=== PATIENT | female | born 1975 | race Caucasian/White ===

== ENCOUNTER 2016-03-04 19:24 | Emergency (ER) | payer OTHER ==
[~2016-03-04] VITALS: Ht 172.7 cm; Wt 99.8 kg
[~2016-03-04 19:24] MED LIST: ACETAMINOPHEN-H1 TA2 PO; ANTACID PO; ATIVAN0.5 MG PO; AUGMENTIN 875 M1 TAB PO; BIRTH CONTROL1 EAC1 PO; BUPROPION75 MG PO; CALCITRATE200 MG PO; CELEXA20 MG PO; CIPROFLOXACIN500 MG PO; CLARITIN10 MG PO; CLINDAMYCIN300 MG PO; COMPAZINE10 MG PO; DARVOCET N 1001 TAB PO; EPIPEN 2-PAK1 MG/ML MR; FIORICET 325 MG1 TAB PO; HYDROCHLOROTH12.5 M3 PO; KEFLEX250 MG/5 M PO; KROGER NIC21 MG/24 H T; LEVOTHYROXINE0.05 MG PO; LISINOPRIL-HYDR1 TA1 PO; LISINOPRIL40 MG PO; MOTRIN800 MG PO; NORVASC5 MG PO; PENICILLIN V500 MG PO; PENICILLIN VK500 MG PO; PERCOCET 325 MG1 TA2 PO; PREDNISONE50 MG PO; Rocaltrol0.25 MCG PO; SEPTRA DS 800 M1 TAB PO; SYNTHROID,LEVO75 MCG PO; SYNTHROID0.025 MG PO; Synthroid,Levo75 MCG PO; TOPIRAMATE25 M3 PO; TRAMADOL HCL50 MG PO; ULTRAM50 MG PO; VICODIN 5-3001 EACH PO; VICODIN 5/500 505 MG PO; VICODIN ES 7501 TAB PO; VICODIN PO; VOLTAREN50 M1 PO; ZANTAC 150150 MG PO; ZOFRAN ODT4 MG SL; ZOFRAN4 MG PO
[2016-03-04 19:53] VITALS: BP 145/92
[2016-03-04] MEDS ORDERED: HYDROCODONE BIT1 T11 PO (19:54)
[2016-03-04 20:31] LABS: BILIRUBIN NEGATIVE (NEGATIVE); BLOOD NEGATIVE (NEGATIVE); CLARITY CLEAR (CLEAR); COLOR YELLOW (YELLOW); GLUCOSE NEGATIVE (NEGATIVE); KETONE NEGATIVE (NEGATIVE); LEUKO ESTERASE NEGATIVE (NEGATIVE); NITRITE NEGATIVE (NEGATIVE); PH 5.5 (5.0-9.0); PROTEIN NEGATIVE (NEGATIVE); SPECIFIC GRAVITY <= 1.005 (1.005-1.030); UROBILINOGEN 0.2 E.U./dl (0.2-1.0)
[2016-03-04 20:49] LABS: URINE REFLEX COMMENT NO (NO); WBC 0-2 wbc/hpf (0-5)
[2016-03-04] MEDS ORDERED: ANAPROX DS550 MG PO (22:16)
== END 2016-03-04 22:14 | disposition home or self-care (01) ==
LOC: ED 19:24
PROVIDERS: Emergency Medicine Emergency Medical Services
DX: S16.1XXA Strain of muscle, fascia and tendon at neck level, initial encounter (principal); F41.9 Anxiety disorder, unspecified; F32.9 Major depressive disorder, single episode, unspecified; I10 Essential (primary) hypertension; F17.200 Nicotine dependence, unspecified, uncomplicated; Z90.49 Acquired absence of other specified parts of digestive tract; Z88.8 Allergy status to other drugs, medicaments and biological substances; Z90.89 Acquired absence of other organs; X58.XXXA Exposure to other specified factors, initial encounter; Y93.89 Activity, other specified; Y92.9 Unspecified place or not applicable; Y99.9 Unspecified external cause status

== ENCOUNTER 2016-05-02 18:23 | Emergency (ER) | payer OTHER ==
[~2016-05-02] VITALS: Ht 172.7 cm; Wt 122.5 kg
[~2016-05-02 18:23] MED LIST changes: +ANAPROX DS550 MG PO; +HYDROCODONE BIT1 T11 PO
[2016-05-02] MEDS ORDERED: VITAMIN D50000 I3 PO (18:40)
[2016-05-02] MEDS ORDERED: IBU800 M1 PO (18:41)
[2016-05-02] MEDS ORDERED: RANITIDINE HYD300 MG PO (18:41)
[2016-05-02] MEDS ORDERED: OMEPRAZOLE40 MG PO (18:41)
[2016-05-02 19:13] LABS: BASO # 0.1 10*3/uL (0.0-0.1); BASO % 0.6 % (0.0-1.0); EOS # 0.2 10*3/uL (0.0-0.4); HEMATOCRIT 44.9 % (37.0-47.0); HEMOGLOBIN 15.6 g/dl (12.0-16.0); LYMPH # 3.1 10*3/uL (1.3-4.4); LYMPH % 38.3 % (27.0-41.0); MEAN CORPUSCULAR HGB CONC 34.7 g/dl (33.0-37.0); MEAN PLATELET VOLUME 9.3 fl (9.6-12.3); MONO # 0.4 10*3/uL (0.1-1.0); MONO % 5.3 % (3.0-9.0); NEUT # 4.2 10*3/uL (2.3-7.9); NEUT % 53.3 % (47.0-73.0); PLATELET COUNT AUTOMATED 296 10*3/uL (130-400); RED BLOOD COUNT 4.88 10*6/uL (4.10-5.10); RED CELL DISTRI WIDTH 13.2 % (0-14.5)
[2016-05-02 19:28] LABS: ALBUMIN 4.1 gm/dl (3.1-4.5); ALKALINE PHOSPHATASE 58 U/L (45-117); BILIRUBIN, TOTAL 0.4 mg/dl (0.2-1.0); BUN 16 mg/dl (7-24); CARBON DIOXIDE 29 mmol/L (21-32); CHLORIDE 107 mmol/L (98-107); EST GLOM FILT AFRICAN AMERICAN > 60 ml/min; GLUCOSE 89 mg/dL (65-99); POTASSIUM 4.2 mmol/L (3.5-5.1); SGOT/AST 18 IU/L (3-35); SGPT/ALT 27 U/L (12-78); SODIUM 144 mmol/L (136-145); TOTAL PROTEIN 7.6 gm/dL (6.4-8.2)
[2016-05-02 19:36] LABS: THYROID STIM HORMONE (HS) 0.887 uIU/ml (0.358-4.75)
[2016-05-02 20:26] VITALS: BP 136/92
[2016-05-02] MEDS ORDERED: ATIVAN1 MG PO (21:41)
== END 2016-05-02 21:42 | disposition home or self-care (01) ==
LOC: ED 18:23
PROVIDERS: Physician Assistant
DX: F41.9 Anxiety disorder, unspecified (principal); F17.200 Nicotine dependence, unspecified, uncomplicated; Z88.8 Allergy status to other drugs, medicaments and biological substances; Z90.49 Acquired absence of other specified parts of digestive tract; Z79.899 Other long term (current) drug therapy

== ENCOUNTER → 2016-06-03 | Outpatient (CLI) | payer OTHER ==
[~2016-06-03] MED LIST changes: +ATIVAN1 MG PO; +IBU800 M1 PO; +OMEPRAZOLE40 MG PO; +RANITIDINE HYD300 MG PO; +VITAMIN D50000 I3 PO
[2016-06-03 12:25] LABS: FREE T4 1.13 ng/dl (0.76-1.46)
[2016-06-03 12:30] LABS: THYROID STIM HORMONE (HS) 0.582 uIU/ml (0.358-4.75)
== END | disposition home or self-care (01) ==
LOC: LAB 11:25
PROVIDERS: Internal Medicine
DX: E83.51 Hypocalcemia (principal); E89.0 Postprocedural hypothyroidism; E61.8 Deficiency of other specified nutrient elements; E55.9 Vitamin D deficiency, unspecified

== ENCOUNTER 2016-07-07 18:55 | Emergency (ER) | payer OTHER ==
[~2016-07-07] VITALS: Ht 172.7 cm; Wt 113.4 kg
[2016-07-07 19:00] VITALS: BP 152/90
[2016-07-07] MEDS ORDERED: CELEXA20 MG PO (19:02)
[2016-07-07] MEDS ORDERED: HYDROCODONE BIT1 T11 PO (20:00)
[2016-07-07] MEDS ORDERED: BACTRIM DS 8001 TA1 PO (20:00)
[2016-07-07] MEDS ORDERED: CEPHALEXIN500 M1 PO (20:00)
== END 2016-07-07 20:48 | disposition home or self-care (01) ==
LOC: ED 18:55
DX: L02.416 Cutaneous abscess of left lower limb (principal); F17.200 Nicotine dependence, unspecified, uncomplicated; Z88.8 Allergy status to other drugs, medicaments and biological substances; Z90.49 Acquired absence of other specified parts of digestive tract

== ENCOUNTER → 2016-08-01 | Outpatient (CLI) | payer OTHER ==
[~2016-08-01] MED LIST changes: +BACTRIM DS 8001 TA1 PO; +CEPHALEXIN500 M1 PO
== END | disposition home or self-care (01) ==
LOC: US 07-31 15:50
DX: M79.89 Other specified soft tissue disorders (principal)

== ENCOUNTER 2016-09-18 12:50 | Emergency (ER) | payer OTHER ==
[~2016-09-18] VITALS: Ht 172.7 cm; Wt 113.4 kg
[2016-09-18 13:02] VITALS: BP 151/88
[2016-09-18] MEDS ORDERED: TRAMADOL HCL50 MG PO (15:53)
== END 2016-09-18 15:57 | disposition home or self-care (01) ==
LOC: ED 12:50
DX: S16.1XXA Strain of muscle, fascia and tendon at neck level, initial encounter (principal); I10 Essential (primary) hypertension; E03.9 Hypothyroidism, unspecified; F17.200 Nicotine dependence, unspecified, uncomplicated; Z90.49 Acquired absence of other specified parts of digestive tract; Z88.8 Allergy status to other drugs, medicaments and biological substances; V89.2XXA Person injured in unspecified motor-vehicle accident, traffic, initial encounter; Y93.89 Activity, other specified; Y92.413 State road as the place of occurrence of the external cause; Y99.9 Unspecified external cause status

== ENCOUNTER → 2016-10-21 | Outpatient (CLI) | payer OTHER ==
[2016-10-21 13:54] LABS: ALBUMIN 3.7 gm/dl (3.1-4.5); BUN 13 mg/dl (7-24); CHLORIDE 107 mmol/L (98-107); CREATININE 0.74 mg/dL (0.55-1.02); FREE T4 1.17 ng/dl (0.76-1.46); POTASSIUM 3.3 mmol/L (3.5-5.1); SODIUM 141 mmol/L (136-145)
[2016-10-21 14:13] LABS: PTH INTACT 8.7 pg/mL (14.0-72.0); VITAMIN D, 25-HYDROXY 56.5 ng/mL (30-100)
[2016-10-22 07:07] LABS: DHEA SULFATE 004020 133.1 ug/dL (57.3-279.2)
== END | disposition home or self-care (01) ==
LOC: LAB 12:55
PROVIDERS: Internal Medicine
DX: E89.0 Postprocedural hypothyroidism (principal); L65.9 Nonscarring hair loss, unspecified; E55.9 Vitamin D deficiency, unspecified

== ENCOUNTER 2016-11-29 14:23 | Emergency (ER) | payer OTHER ==
[~2016-11-29] VITALS: Ht 1767 cm; Wt 108.9 kg
[2016-11-29 14:34] VITALS: BP 140/63
[2016-11-29] MEDS ORDERED: NAPROSYN500 MG PO (15:55)
== END 2016-11-29 14:38 | disposition home or self-care (01) ==
LOC: ED 14:23
DX: S93.401A Sprain of unspecified ligament of right ankle, initial encounter (principal); R03.0 Elevated blood-pressure reading, without diagnosis of hypertension; F17.200 Nicotine dependence, unspecified, uncomplicated; Z90.721 Acquired absence of ovaries, unilateral; Z90.49 Acquired absence of other specified parts of digestive tract; Z88.8 Allergy status to other drugs, medicaments and biological substances; W10.8XXA Fall (on) (from) other stairs and steps, initial encounter; Y93.89 Activity, other specified; Y92.098 Other place in other non-institutional residence as the place of occurrence of the external cause; Y99.8 Other external cause status

== ENCOUNTER → 2017-03-05 | Outpatient (CLI) | payer OTHER ==
[~2017-03-05] MED LIST changes: +NAPROSYN500 MG PO
[2017-03-05 10:11] LABS: ALBUMIN 3.9 gm/dl (3.1-4.5); BUN 13 mg/dl (7-24); CHLORIDE 107 mmol/L (98-107); CREATININE 0.67 mg/dL (0.55-1.02); POTASSIUM 3.8 mmol/L (3.5-5.1); SODIUM 139 mmol/L (136-145)
[2017-03-05 11:55] LABS: PTH INTACT 13.1 pg/mL (14.0-72.0); VITAMIN D, 25-HYDROXY 36.1 ng/mL (30-100)
[2017-03-06 07:06] LABS: DHEA SULFATE 107.5 ug/dL (57.3-279.2)
== END ==
LOC: LAB 09:12
PROVIDERS: Internal Medicine
DX: E55.9 Vitamin D deficiency, unspecified (principal); E89.0 Postprocedural hypothyroidism; L65.9 Nonscarring hair loss, unspecified

== ENCOUNTER → 2017-03-11 | Outpatient (CLI) | payer OTHER | END | disposition home or self-care (01) | LOC: US 12:25 | DX: E03.9 Hypothyroidism, unspecified (principal); R22.0 Localized swelling, mass and lump, head ==

== ENCOUNTER → 2017-04-15 | Day surgery (SDC) | payer OTHER ==
[~2017-04-15] VITALS: Ht 172.7 cm; Wt 117.9 kg
--- NOTE | ~2017-04-15 | O ---
[place], [place] OPERATIVE NOTE NAME: SANTOS LEYVA [facility] #: [id number] UNIT #: [id number] ROOM: DOCTOR: JESSI GARCIA MD BIRTHDATE: [birth year] DOS: 04/15/2017 GASTROENDOSCOPIC REPORT INDICATIONS: A 41-year-old patient who presented with chief complaint of epigastric abdominal pain, undergoing investigation. PROCEDURE: Today's procedure part of investigation panendoscopy plus biopsy. PREMEDICATIONS: Versed and Diprivan. SCOPE: Olympus forward-viewing gastroscope Q10 video. REPORT: After putting the patient in left lateral position and application of lubricant to the scope, the scope was introduced. Thereafter, under direct visualization, advanced through the length of esophagus without difficulty. Esophagus, cervical, thoracic distal within normal limit. Gastric pouch was entered. Small hiatal hernia seen. Mild gastritis seen. Antral biopsy obtained for H. pylori. The patient was gradually extubated, tolerated the procedure well. IMPRESSION: Mild gastritis, small hiatal hernia. PLAN: Omeprazole 20 mg 1 every day, would suffice and followup as advised to be routinely with you. The patient is strictly advised to abstain from drinking 6 cans of soda per day, which is not only contributing to her obesity, also to her gastritis. Workup in progress. JESSI GARCIA MD CM:OPRECORD:OPERATIVE NOTE [id number] JESSI GARCIA MD 04/15/17 0857 interface
--- NOTE | ~2017-04-15 | O ---
[place], [place] OPERATIVE NOTE NAME: LEYVASANTOS UNIT #: [id number] ROOM: DOCTOR: JESSI GARCIA MD BIRTHDATE: [birth year] DOS: 04/15/2017 GASTROENDOSCOPIC REPORT INDICATIONS: A 41-year-old patient who presented with chief complaint of blood in stool, dyspepsia, undergoing investigation. ALLERGIES: LISINOPRIL. PAST FAMILY HISTORY: Grandfather and uncle with colonic carcinoma. PAST SURGICAL HISTORY: Thyroid, right ankle, carpal tunnel, cholecystectomy, and right fallopian tube. PAST MEDICAL HISTORY: Hypertension, thyroid, depression, parathyroid obesity. SOCIAL HISTORY: Smoker of a pack of cigarette and alcohol socially as well as drinking 6 cans of Mountain Dew per day. PROCEDURE: Today's procedure part of investigation is EGD and colonoscopy. PREMEDICATION: Versed and Diprivan. SCOPE: Olympus folding colonoscope 10L video. REPORT: After putting the patient in left lateral position and application of lubricant to the scope, the scope was introduced. Thereafter, under direct visualization, I advanced through the length of colon without difficulty. Base of the cecum explored. Upon source identified ileocecal valve was defined scope was withdrawn back to the sigmoid colon. Two sessile polypoid lesion with piecemeal polypectomy removed. Air was suctioned out. The patient was extubated, tolerated the procedure well. IMPRESSION: Sigmoid colon polyp, sessile x 2, status post piecemeal polypectomy. A small hemorrhoid, otherwise no acute pathology. PLAN AND DISCUSSION: We will proceed with panendoscopy. [place], [place] OPERATIVE NOTE NAME: SANTOS LEYVA UNIT #: [id number] ROOM: DOCTOR: JESSI GARCIA MD BIRTHDATE: [birth year] JESSI GARCIA MD CM:OPRECORD:OPERATIVE NOTE [phone] JESSI GARCIA MD 04/15/17 0853 interface
[2017-04-15 07:05] VITALS: BP 116/72
[2017-04-15 08:38] VITALS: BP 99/64
[2017-04-15 08:53] VITALS: BP 91/63
[2017-04-15 09:06] VITALS: BP 129/81
== END ==
LOC: SDC 04-13 14:00
DX: K29.50 Unspecified chronic gastritis without bleeding (principal); K44.9 Diaphragmatic hernia without obstruction or gangrene; Z88.8 Allergy status to other drugs, medicaments and biological substances; Z80.0 Family history of malignant neoplasm of digestive organs; Z90.49 Acquired absence of other specified parts of digestive tract; Z98.890 Other specified postprocedural states; I10 Essential (primary) hypertension; F32.9 Major depressive disorder, single episode, unspecified; F17.210 Nicotine dependence, cigarettes, uncomplicated; K63.5 Polyp of colon; G43.909 Migraine, unspecified, not intractable, without status migrainosus; F41.9 Anxiety disorder, unspecified

== ENCOUNTER → 2017-05-27 | Outpatient (CLI) | payer OTHER ==
[2017-05-27 09:16] LABS: ALBUMIN 3.6 gm/dl (3.1-4.5); BUN 12 mg/dl (7-24); CHLORIDE 107 mmol/L (98-107); CREATININE 0.63 mg/dL (0.55-1.02); FREE T4 1.09 ng/dl (0.76-1.46); POTASSIUM 3.8 mmol/L (3.5-5.1); SODIUM 142 mmol/L (136-145)
== END | disposition home or self-care (01) ==
LOC: LAB 08:25
PROVIDERS: Internal Medicine
DX: E55.9 Vitamin D deficiency, unspecified (principal); E89.0 Postprocedural hypothyroidism; E83.51 Hypocalcemia; R22.41 Localized swelling, mass and lump, right lower limb; R25.2 Cramp and spasm

== ENCOUNTER 2017-06-04 19:41 | Emergency (ER) | payer OTHER ==
[~2017-06-04] VITALS: Ht 177.8 cm; Wt 108.9 kg
[2017-06-04 20:02] LABS: BASO % 0.5 % (0.0-1.0); EOS % 0.2 % (1.0-4.0); HEMATOCRIT 42.8 % (37.0-47.0); HEMOGLOBIN 14.3 g/dl (12.0-16.0); LYMPH # 0.9 10*3/uL (1.3-4.4); LYMPH % 10.6 % (27.0-41.0); MEAN CELL VOLUME 96.6 fl (81.0-99.0); MEAN CORPUSCULAR HGB 32.3 pg (27.0-31.0); MEAN CORPUSCULAR HGB CONC 33.4 g/dl (33.0-37.0); MEAN PLATELET VOLUME 9.5 fl (9.6-12.3); MONO # 0.3 10*3/uL (0.1-1.0); MONO % 4.1 % (3.0-9.0); NEUT % 83.9 % (47.0-73.0); PLATELET COUNT AUTOMATED 210 10*3/uL (130-400); RED BLOOD COUNT 4.43 10*6/uL (4.10-5.10); RED CELL DISTRI WIDTH 13.1 % (0-14.5); WHITE BLOOD COUNT 8.3 10*3/uL (4.8-10.8)
[2017-06-04 20:18] LABS: ALBUMIN 3.8 gm/dl (3.1-4.5); ALKALINE PHOSPHATASE 60 U/L (45-117); BUN 11 mg/dl (7-24); CHLORIDE 103 mmol/L (98-107); CREATININE 0.73 mg/dL (0.55-1.02); LIPASE 76 U/L (73-393); POTASSIUM 4.1 mmol/L (3.5-5.1); SGOT/AST 29 IU/L (3-35); SGPT/ALT 45 U/L (12-78); SODIUM 136 mmol/L (136-145); TOTAL PROTEIN 7.1 gm/dL (6.4-8.2)
[2017-06-04 20:30] LABS: BILIRUBIN NEGATIVE (NEGATIVE); BLOOD NEGATIVE (NEGATIVE); CLARITY CLEAR (CLEAR); COLOR YELLOW (YELLOW); GLUCOSE NEGATIVE (NEGATIVE); KETONE NEGATIVE (NEGATIVE); LEUKO ESTERASE NEGATIVE (NEGATIVE); NITRITE NEGATIVE (NEGATIVE); PH 7.5 (5.0-9.0); SPECIFIC GRAVITY 1.015 (1.005-1.030); UROBILINOGEN 0.2 E.U./dl (0.2-1.0)
[2017-06-04 20:40] LABS: BACTERIA TRACE; RBC 0-2 rbc/hpf (0-2); WBC 0-2 wbc/hpf (0-5)
[2017-06-04 21:41] VITALS: BP 116/66
[2017-06-04] MEDS ORDERED: NAPROSYN500 MG PO (22:25)
[2017-06-04] MEDS ORDERED: ORPHENADRINE C100 M1 PO (22:25)
== END 2017-06-04 22:37 | disposition home or self-care (01) ==
LOC: ED 19:41
PROVIDERS: Nurse Practitioner Family
DX: S39.011A Strain of muscle, fascia and tendon of abdomen, initial encounter (principal); R10.32 Left lower quadrant pain; F17.200 Nicotine dependence, unspecified, uncomplicated; Z98.890 Other specified postprocedural states; Z90.89 Acquired absence of other organs; Z79.899 Other long term (current) drug therapy; Z88.8 Allergy status to other drugs, medicaments and biological substances; X58.XXXA Exposure to other specified factors, initial encounter; Y93.89 Activity, other specified; Y92.89 Other specified places as the place of occurrence of the external cause; Y99.9 Unspecified external cause status

== ENCOUNTER → 2018-03-08 | Outpatient (CLI) | payer OTHER ==
[~2018-03-08] MED LIST changes: +CYCLOBENZAPRINE10 MG PO; +NORCO 5-325 TA1 EACH PO; +ORPHENADRINE C100 M1 PO; +VITAMIN D5000 UNIT PO
--- NOTE | ~2018-03-08 | ST ---
[place], [place] EXERCISE STRESS TEST REPORT [id number] UNIT #: [id number] ROOM: DOCTOR: SABRA FRITZ MD BIRTHDATE: [birth year] DOS: 03/08/2018 EXERCISE STRESS NUCLEAR CARDIAC PERFUSION STUDY REASON: Left chest discomfort. PROCEDURE: The patient exercised for 9 minutes on a full Miquel protocol and stopped for dyspnea. She achieved a maximum heart rate of 154, which represented 86% of her maximum predicted heart rate at a workload of 10 mets. Her resting blood pressure 118/78 alban to 164/72. She had no significant arrhythmias or diagnostic electrocardiographic changes. Davies treadmill score was 9 consistent with a low probability of major adverse cardiac events. One minute prior to completion of the exercise protocol, the patient was given radionuclide intravenously. IMPRESSION: 1. Good exercise capacity without chest pain or diagnostic electrocardiographic changes. 2. Radionuclide administered. Please see the separate imaging report for details of the patient's stress test results. 3. Davies treadmill score 9 consistent with low probability for major adverse cardiac events. SABRA FRITZ MD CM:STRESS:EXERCISE STRESS TEST REPORT [id number] SABRA FRITZ MD
--- NOTE | 2018-03-08 10:55 | NUR ---
INFORMED SIGNED CONSENT OBTAINED FOR LEXISCAN STRESS TEST WITH DR FRITZ. RESTING EKG NSR HR 64 BP 118/78 IN SUPINE POSITION, STANDING HR 74 BP 118/78. PT COMPLETED 9:00 OF A SARBJIT PROTOCOL WITH PT COMPLETING STAGE IIT AT 3.4 MPH AND A 14% GRADE. PT REACHED A PEAK HR OF 154 WHICH REPRESENTS 86% OF PREDICTED MAXIMUM HR AND A MAXIMUM BP OF 164/72. NO ARRHYTHMIAS OR ST CHANGES NOTED. TEST TERMINATED DUE TO FATIGUE AND SOB POX 99%. LAST RECOVERY HR OF 99 BP 128/74. PT IN STABLE CONDITION. AWAITING NUCLEAR IMAGES.
== END | disposition home or self-care (01) ==
LOC: CARD 00:16
DX: I10 Essential (primary) hypertension (principal); R07.89 Other chest pain

== ENCOUNTER → 2018-03-12 | Outpatient (CLI) | payer OTHER ==
[~2018-03-12] MED LIST changes: +MEDROL DOSEPAK4 MG PO
== END | disposition home or self-care (01) ==
LOC: RAD 14:01
DX: J40 Bronchitis, not specified as acute or chronic (principal); R50.9 Fever, unspecified; R11.0 Nausea

== ENCOUNTER 2018-04-23 12:01 | Emergency (ER) | payer OTHER ==
[~2018-04-23] VITALS: Wt 99.8 kg
[~2018-04-23 12:01] MED LIST changes: -MEDROL DOSEPAK4 MG PO
[2018-04-23 12:04] VITALS: BP 127/73
[2018-04-23 12:34] LABS: BASO % 0.6 % (0.0-1.0); EOS # 0.1 10*3/uL (0.0-0.4); HEMATOCRIT 43.6 % (37.0-47.0); HEMOGLOBIN 14.7 g/dl (12.0-16.0); LYMPH # 2.4 10*3/uL (1.3-4.4); MEAN CELL VOLUME 97.3 fl (81.0-99.0); MEAN CORPUSCULAR HGB 32.8 pg (27.0-31.0); MEAN CORPUSCULAR HGB CONC 33.7 g/dl (33.0-37.0); MEAN PLATELET VOLUME 9.7 fl (9.6-12.3); MONO # 0.4 10*3/uL (0.1-1.0); MONO % 5.6 % (3.0-9.0); NEUT % 57.4 % (47.0-73.0); PLATELET COUNT AUTOMATED 244 10*3/uL (130-400); RED BLOOD COUNT 4.48 10*6/uL (4.10-5.10); RED CELL DISTRI WIDTH 13.2 % (0-14.5); WHITE BLOOD COUNT 6.9 10*3/uL (4.8-10.8)
[2018-04-23 12:35] LABS: BILIRUBIN NEGATIVE (NEGATIVE); BLOOD NEGATIVE (NEGATIVE); CLARITY CLEAR (CLEAR); COLOR YELLOW (YELLOW); GLUCOSE NEGATIVE (NEGATIVE); KETONE NEGATIVE (NEGATIVE); LEUKO ESTERASE NEGATIVE (NEGATIVE); NITRITE NEGATIVE (NEGATIVE); PH 5.5 (5.0-9.0); SPECIFIC GRAVITY <= 1.005 (1.005-1.030); UROBILINOGEN 0.2 E.U./dl (0.2-1.0)
[2018-04-23 12:41] LABS: RBC 0-2 rbc/hpf (0-2); WBC 0-2 wbc/hpf (0-5)
[2018-04-23 12:42] LABS: ACT PARTIAL THROMBO TIME 23.5 SECONDS (20.8-31.5); INTERNATIONAL NORM RATIO 0.9 (2.0-3.5)
[2018-04-23 12:56] LABS: ALBUMIN 3.6 gm/dl (3.1-4.5); ALKALINE PHOSPHATASE 63 U/L (45-117); BUN 15 mg/dl (7-24); CHLORIDE 111 mmol/L (98-107); CREATININE 0.67 mg/dL (0.55-1.02); POTASSIUM 3.4 mmol/L (3.5-5.1); SGOT/AST 11 IU/L (3-35); SGPT/ALT 30 U/L (12-78); SODIUM 143 mmol/L (136-145)
[2018-06-14] MEDS ORDERED: MEDROL DOSEPAK4 MG PO (16:20)
== END 2018-04-23 13:55 | disposition home or self-care (01) ==
LOC: ED 12:01
PROVIDERS: Emergency Medicine
DX: K52.9 Noninfective gastroenteritis and colitis, unspecified (principal); K62.5 Hemorrhage of anus and rectum; I10 Essential (primary) hypertension; E03.9 Hypothyroidism, unspecified; E44.1 Mild protein-calorie malnutrition; F17.200 Nicotine dependence, unspecified, uncomplicated; Z90.49 Acquired absence of other specified parts of digestive tract; Z88.8 Allergy status to other drugs, medicaments and biological substances; Z79.899 Other long term (current) drug therapy

== ENCOUNTER → 2018-06-23 | Outpatient (CLI) | payer OTHER ==
[~2018-06-23] MED LIST changes: +MEDROL DOSEPAK4 MG PO
== END | disposition home or self-care (01) ==
LOC: MRI 14:58
DX: M47.816 Spondylosis without myelopathy or radiculopathy, lumbar region (principal); M51.26 Other intervertebral disc displacement, lumbar region; M12.88 Other specific arthropathies, not elsewhere classified, other specified site; G83.4 Cauda equina syndrome

== ENCOUNTER → 2019-12-02 | Outpatient (CLI) | payer OTHER ==
[~2019-12-02] MED LIST changes: +AUGMENTIN 875875 MG PO
== END | disposition home or self-care (01) ==
LOC: COVID19 08:26
PROVIDERS: ATTEND Family Medicine
DX: J02.9 Acute pharyngitis, unspecified (principal); Z20.828 Contact with and (suspected) exposure to other viral communicable diseases

== ENCOUNTER 2020-01-16 11:56 | Emergency (ER) | payer OTHER ==
[~2020-01-16] VITALS: Wt 108.9 kg
[~2020-01-16 11:56] MED LIST changes: -AUGMENTIN 875875 MG PO
[2020-01-16 12:07] VITALS: BP 165/93
[2020-01-16] MEDS ORDERED: AUGMENTIN 875875 MG PO (13:43)
== END 2020-01-16 13:56 | disposition home or self-care (01) ==
LOC: ED 11:56
DX: S01.511A Laceration without foreign body of lip, initial encounter (principal); G43.909 Migraine, unspecified, not intractable, without status migrainosus; F41.9 Anxiety disorder, unspecified; I10 Essential (primary) hypertension; E07.9 Disorder of thyroid, unspecified; Z88.8 Allergy status to other drugs, medicaments and biological substances; Z79.899 Other long term (current) drug therapy; Z90.49 Acquired absence of other specified parts of digestive tract; Z87.891 Personal history of nicotine dependence; W54.0XXA Bitten by dog, initial encounter; Y93.89 Activity, other specified; Y92.89 Other specified places as the place of occurrence of the external cause; Y99.8 Other external cause status

== ENCOUNTER → 2020-02-07 | Outpatient (CLI) | payer OTHER ==
[~2020-02-07] MED LIST changes: +AUGMENTIN 875875 MG PO
== END | disposition home or self-care (01) ==
LOC: COVID19 12:30
PROVIDERS: ATTEND Family Medicine
DX: Z20.828 Contact with and (suspected) exposure to other viral communicable diseases (principal)

== ENCOUNTER 2020-04-02 09:41 | Emergency (ER) | payer OTHER ==
[~2020-04-02] VITALS: Ht 172.7 cm; Wt 122.5 kg
[2020-04-02 09:46] VITALS: BP 151/86
[2020-04-02 10:36] LABS: BASO # 0.1 10*3/uL (0.0-0.1); BASO % 0.4 % (0.0-1.0); EOS # 0.1 10*3/uL (0.0-0.4); EOS % 1.1 % (1.0-4.0); HEMATOCRIT 48.8 % (37.0-47.0); LYMPH # 1.9 10*3/uL (1.3-4.4); LYMPH % 14.3 % (27.0-41.0); MEAN CELL VOLUME 94.9 fl (81.0-99.0); MEAN CORPUSCULAR HGB 31.7 pg (27.0-31.0); MEAN CORPUSCULAR HGB CONC 33.4 g/dl (33.0-37.0); MEAN PLATELET VOLUME 9.3 fl (9.6-12.3); MONO # 0.7 10*3/uL (0.1-1.0); MONO % 5.2 % (3.0-9.0); NEUT # 10.1 10*3/uL (2.3-7.9); NEUT % 78.5 % (47.0-73.0); PLATELET COUNT AUTOMATED 328 10*3/uL (130-400); RED BLOOD COUNT 5.14 10*6/uL (4.10-5.10); WHITE BLOOD COUNT 12.9 10*3/uL (4.8-10.8)
[2020-04-02 10:52] LABS: ALBUMIN 3.7 gm/dl (3.1-4.5); ALKALINE PHOSPHATASE 70 U/L (45-117); BUN 14 mg/dl (7-24); CHLORIDE 109 mmol/L (98-107); CREATININE 0.76 mg/dL (0.55-1.02); LIPASE 58 U/L (73-393); POTASSIUM 3.7 mmol/L (3.5-5.1); SGOT/AST 11 IU/L (3-35); SGPT/ALT 27 U/L (12-78); SODIUM 141 mmol/L (136-145); TOTAL PROTEIN 7.4 gm/dL (6.4-8.2)
[2020-04-02 10:54] LABS: BILIRUBIN Negative (Negative); BLOOD 1+ (Negative); CLARITY Turbid (Clear); COLOR Yellow (Yellow); GLUCOSE Negative (Negative); KETONE Trace (Negative); NITRITE Negative (Negative); PH 5.5 (4.5-8.0); SPECIFIC GRAVITY 1.025 (1.001-1.030); UROBILINOGEN 0.2 E.U./dl (0.0-1.0)
[2020-04-02 10:58] LABS: LEUKO ESTERASE Negative (Negative)
[2020-04-02 11:44] LABS: BACTERIA 1+; RBC 0-2 rbc/hpf (0-2); WBC 0-2 wbc/hpf (0-5)
[2020-04-02] MEDS ORDERED: ZOFRAN4 MG PO (13:03)
== END 2020-04-02 13:06 | disposition home or self-care (01) ==
LOC: ED 09:41
PROVIDERS: Physician Assistant
DX: K52.9 Noninfective gastroenteritis and colitis, unspecified (principal); G43.909 Migraine, unspecified, not intractable, without status migrainosus; F41.9 Anxiety disorder, unspecified; Z88.8 Allergy status to other drugs, medicaments and biological substances; Z79.899 Other long term (current) drug therapy; Z98.890 Other specified postprocedural states; Z90.49 Acquired absence of other specified parts of digestive tract

== ENCOUNTER → 2020-04-06 | Outpatient (CLI) | payer OTHER | END | disposition home or self-care (01) | LOC: COVID19 14:18 | PROVIDERS: ATTEND Family Medicine | DX: Z20.822 Contact with and (suspected) exposure to COVID-19 (principal); R19.7 Diarrhea, unspecified ==

== ENCOUNTER → 2020-06-21 | Outpatient (CLI) | payer OTHER | END | disposition home or self-care (01) | LOC: MAMMO 06-18 09:30 | PROVIDERS: ATTEND Student in an Organized Health Care Education/Training Program | DX: N63.0 Unspecified lump in unspecified breast (principal) ==

== ENCOUNTER 2020-07-13 11:49 | Emergency (ER) | payer OTHER ==
[~2020-07-13] VITALS: Ht 172.7 cm; Wt 108.9 kg
[2020-07-13 12:03] VITALS: BP 133/70
[2020-07-13 12:39] LABS: BASO # 0.1 10*3/uL (0.0-0.1); BASO % 1.1 % (0.0-1.0); EOS # 0.2 10*3/uL (0.0-0.4); EOS % 2.8 % (1.0-4.0); HEMATOCRIT 46.6 % (37.0-47.0); LYMPH # 2.1 10*3/uL (1.3-4.4); LYMPH % 31.9 % (27.0-41.0); MEAN CELL VOLUME 95.1 fl (81.0-99.0); MEAN CORPUSCULAR HGB 32.4 pg (27.0-31.0); MEAN CORPUSCULAR HGB CONC 34.1 g/dl (33.0-37.0); MEAN PLATELET VOLUME 9.1 fl (9.6-12.3); MONO # 0.4 10*3/uL (0.1-1.0); MONO % 6.2 % (3.0-9.0); NEUT # 3.7 10*3/uL (2.3-7.9); NEUT % 57.7 % (47.0-73.0); PLATELET COUNT AUTOMATED 291 10*3/uL (130-400); RED CELL DISTRI WIDTH 13.2 % (0-14.5); WHITE BLOOD COUNT 6.5 10*3/uL (4.8-10.8)
[2020-07-13 12:54] LABS: ALBUMIN 3.4 gm/dl (3.1-4.5); ALKALINE PHOSPHATASE 71 U/L (45-117); BUN 7 mg/dl (7-24); CHLORIDE 110 mmol/L (98-107); CREATININE 0.64 mg/dL (0.55-1.02); POTASSIUM 3.8 mmol/L (3.5-5.1); SGOT/AST 15 IU/L (3-35); SGPT/ALT 33 U/L (12-78); SODIUM 139 mmol/L (136-145); TOTAL PROTEIN 7.1 gm/dL (6.4-8.2)
[2020-07-13 12:56] LABS: B-hCG (QUALITATIVE) NEGATIVE (NEGATIVE)
== END 2020-07-13 14:01 | disposition home or self-care (01) ==
LOC: ED 11:49
PROVIDERS: Internal Medicine
DX: K92.2 Gastrointestinal hemorrhage, unspecified (principal); F17.200 Nicotine dependence, unspecified, uncomplicated; Z88.8 Allergy status to other drugs, medicaments and biological substances; Z79.2 Long term (current) use of antibiotics; Z79.899 Other long term (current) drug therapy; Z90.49 Acquired absence of other specified parts of digestive tract

== ENCOUNTER 2021-09-10 16:25 | Emergency (ER) | payer OTHER ==
[2021-09-11] MEDS ORDERED: PHENERGAN25 M3 PO (18:35)
[2021-09-11] MEDS ORDERED: K-TAB20 MEQ PO (18:35)
== END 2021-09-10 17:58 | disposition left against medical advice (07) ==
LOC: ED 16:25
DX: R19.7 Diarrhea, unspecified (principal); R42 Dizziness and giddiness; R11.10 Vomiting, unspecified; Z53.21 Procedure and treatment not carried out due to patient leaving prior to being seen by health care provider

== ENCOUNTER 2021-09-11 11:19 | Emergency (ER) | payer OTHER ==
[2021-09-11 11:26] VITALS: BP 126/85
[2021-09-11] MEDS ORDERED: PHENERGAN25 M3 PO (18:35)
[2021-09-11] MEDS ORDERED: K-TAB20 MEQ PO (18:35)
== END 2021-09-11 14:54 | disposition left against medical advice (07) ==
LOC: ED 11:19
DX: R19.7 Diarrhea, unspecified (principal); R11.10 Vomiting, unspecified; Z53.21 Procedure and treatment not carried out due to patient leaving prior to being seen by health care provider

== ENCOUNTER 2021-09-11 14:49 | Emergency (ER) | payer OTHER ==
[~2021-09-11] VITALS: Ht 175.2 cm; Wt 105.2 kg
[2021-09-11 15:04] VITALS: BP 133/83
[2021-09-11 15:55] LABS: BASO % 0.7 % (0.0-1.0); EOS % 0.7 % (1.0-4.0); HEMATOCRIT 45.7 % (37.0-47.0); LYMPH # 1.8 10*3/uL (1.3-4.4); LYMPH % 40.2 % (27.0-41.0); MEAN CELL VOLUME 93.1 fl (81.0-99.0); MEAN CORPUSCULAR HGB 33.2 pg (27.0-31.0); MEAN CORPUSCULAR HGB CONC 35.7 g/dl (33.0-37.0); MEAN PLATELET VOLUME 9.4 fl (9.6-12.3); MONO # 0.3 10*3/uL (0.1-1.0); MONO % 7.5 % (3.0-9.0); NEUT # 2.3 10*3/uL (2.3-7.9); NEUT % 50.5 % (47.0-73.0); PLATELET COUNT AUTOMATED 235 10*3/uL (130-400); RED BLOOD COUNT 4.91 10*6/uL (4.10-5.10); RED CELL DISTRI WIDTH 12.6 % (0-14.5); WHITE BLOOD COUNT 4.5 10*3/uL (4.8-10.8)
[2021-09-11 16:10] LABS: ALKALINE PHOSPHATASE 72 U/L (45-117); BUN 9 mg/dl (7-24); CHLORIDE 113 mmol/L (98-107); CREATININE 0.58 mg/dL (0.55-1.02); LIPASE 82 U/L (73-393); POTASSIUM 2.8 mmol/L (3.5-5.1); SGOT/AST 28 IU/L (3-35); SGPT/ALT 38 U/L (12-78); SODIUM 143 mmol/L (136-145)
[2021-09-11] MEDS ORDERED: K-TAB20 MEQ PO (18:35)
[2021-09-11] MEDS ORDERED: PHENERGAN25 M3 PO (18:35)
== END 2021-09-11 18:39 | disposition home or self-care (01) ==
LOC: ED 14:49
PROVIDERS: Physician Assistant
DX: K52.9 Noninfective gastroenteritis and colitis, unspecified (principal); R11.2 Nausea with vomiting, unspecified; R10.33 Periumbilical pain; F17.200 Nicotine dependence, unspecified, uncomplicated; Z90.49 Acquired absence of other specified parts of digestive tract; Z79.899 Other long term (current) drug therapy; Z88.8 Allergy status to other drugs, medicaments and biological substances

== ENCOUNTER 2022-02-03 15:42 | Emergency (ER) | payer OTHER ==
[~2022-02-03 15:42] MED LIST changes: +CITALOPRAM20 MG PO; +CLOPIDOGREL75 MG PO; +DEXLANSOPRAZOLE PO; +K-TAB20 MEQ PO; +LIPITOR80 MG PO; +LOW DOSE ASPIRI81 M1 PO; +NICODERM CQ1 EAC2 T; +PHENERGAN25 M3 PO
== END 2022-02-03 16:30 | disposition left against medical advice (07) ==
LOC: ED 15:42
DX: Z53.21 Procedure and treatment not carried out due to patient leaving prior to being seen by health care provider (principal)

== ENCOUNTER → 2022-04-01 | Outpatient (CLI) | payer OTHER | END | disposition home or self-care (01) | LOC: CT 03-25 09:00 | PROVIDERS: ATTEND Family Medicine | DX: M32.9 Systemic lupus erythematosus, unspecified (principal); R91.8 Other nonspecific abnormal finding of lung field ==

== ENCOUNTER 2022-06-27 07:51 | Emergency (ER) | payer OTHER ==
[~2022-06-27] VITALS: Ht 172.7 cm; Wt 108.9 kg
[2022-06-27 08:01] VITALS: BP 116/45
[2022-06-27 08:13] LABS: BASO # 0.1 10*3/uL (0.0-0.1); BASO % 1.3 % (0.0-1.0); EOS # 0.1 10*3/uL (0.0-0.4); EOS % 2.3 % (1.0-4.0); HEMATOCRIT 40.1 % (37.0-47.0); LYMPH # 1.8 10*3/uL (1.3-4.4); LYMPH % 45.6 % (27.0-41.0); MEAN CELL VOLUME 96.6 fl (81.0-99.0); MEAN CORPUSCULAR HGB 32.5 pg (27.0-31.0); MEAN CORPUSCULAR HGB CONC 33.7 g/dl (33.0-37.0); MEAN PLATELET VOLUME 8.8 fl (9.6-12.3); MONO # 0.3 10*3/uL (0.1-1.0); NEUT # 1.6 10*3/uL (2.3-7.9); PLATELET COUNT AUTOMATED 278 10*3/uL (130-400); RED BLOOD COUNT 4.15 10*6/uL (4.10-5.10); RED CELL DISTRI WIDTH 12.8 % (0-14.5); WHITE BLOOD COUNT 3.9 10*3/uL (4.8-10.8)
[2022-06-27 08:25] LABS: ACT PARTIAL THROMBO TIME 24.8 SECONDS (20.0-32.1)
[2022-06-27] MEDS ORDERED: VITAMIN D3125 MC1 PO (08:29)
[2022-06-27] MEDS ORDERED: ATORVASTATIN CA80 M1 PO (08:30)
[2022-06-27] MEDS ORDERED: AMLODIPINE BESY10 MG PO (08:30)
[2022-06-27] MEDS ORDERED: ASPIRIN ADULT L81 M2 PO (08:30)
[2022-06-27 08:44] LABS: ALKALINE PHOSPHATASE 43 U/L (46-116); BETA-HCG, QUANT < 3.0 mIU/mL (3-10); BUN 10 mg/dl (9-23); CHLORIDE 107 mmol/L (98-107); LIPASE 27 U/L (12-53); POTASSIUM 3.8 mmol/L (3.4-5.1); SGPT/ALT 20 U/L (10-49); TOTAL PROTEIN 6.7 gm/dL (6.0-8.0)
== END 2022-06-27 11:00 | disposition home or self-care (01) ==
LOC: ED 07:51
PROVIDERS: Emergency Medicine
DX: R07.9 Chest pain, unspecified (principal); Z88.8 Allergy status to other drugs, medicaments and biological substances; Z79.899 Other long term (current) drug therapy; Z79.82 Long term (current) use of aspirin; Z90.49 Acquired absence of other specified parts of digestive tract; Z90.89 Acquired absence of other organs; F17.200 Nicotine dependence, unspecified, uncomplicated

== ENCOUNTER 2022-08-13 11:41 | Emergency (ER) | payer OTHER ==
[~2022-08-13] VITALS: Ht 172.7 cm; Wt 108.9 kg
[~2022-08-13 11:41] MED LIST changes: +AMLODIPINE BESY10 MG PO; +ASPIRIN ADULT L81 M2 PO; +ATORVASTATIN CA80 M1 PO; +VITAMIN D3125 MC1 PO
[2022-08-13 11:49] VITALS: BP 148/93
[2022-08-13] MEDS ORDERED: MELOXICAM15 MG PO (13:11)
== END 2022-08-13 13:18 | disposition home or self-care (01) ==
LOC: ED 11:41
DX: S93.402A Sprain of unspecified ligament of left ankle, initial encounter (principal); G43.909 Migraine, unspecified, not intractable, without status migrainosus; F41.9 Anxiety disorder, unspecified; I10 Essential (primary) hypertension; Z88.8 Allergy status to other drugs, medicaments and biological substances; Z90.49 Acquired absence of other specified parts of digestive tract; Z98.890 Other specified postprocedural states; F17.200 Nicotine dependence, unspecified, uncomplicated; X50.1XXA Overexertion from prolonged static or awkward postures, initial encounter; Y93.01 Activity, walking, marching and hiking; Y92.89 Other specified places as the place of occurrence of the external cause; Y99.8 Other external cause status

== ENCOUNTER 2022-12-31 15:30 | Emergency (ER) | payer OTHER ==
[~2022-12-31] VITALS: Ht 172.7 cm; Wt 108.9 kg
[~2022-12-31 15:30] MED LIST changes: +MELOXICAM15 MG PO
[2022-12-31 15:42] VITALS: BP 139/78
[2022-12-31 15:57] LABS: BILIRUBIN Negative (Negative); BLOOD Negative (Negative); CLARITY Clear (Clear); COLOR Yellow (Yellow); GLUCOSE Negative (Negative); KETONE Negative (Negative); LEUKO ESTERASE Negative (Negative); NITRITE Negative (Negative); PH 5.5 (4.5-8.0); SPECIFIC GRAVITY <= 1.005 (1.001-1.030); UROBILINOGEN 0.2 E.U./dl (0.0-1.0)
[2022-12-31 16:29] LABS: EPITHELIAL CELLS 0-2
[2022-12-31] MEDS ORDERED: SEPTDS PO (17:54)
== END 2022-12-31 17:59 | disposition home or self-care (01) ==
LOC: ED 15:30
PROVIDERS: Family Medicine
DX: N75.1 Abscess of Bartholin's gland (principal); Z88.8 Allergy status to other drugs, medicaments and biological substances; F41.9 Anxiety disorder, unspecified; F32.A Depression, unspecified; G43.909 Migraine, unspecified, not intractable, without status migrainosus; I10 Essential (primary) hypertension; Z86.73 Personal history of transient ischemic attack (TIA), and cerebral infarction without residual deficits; Z90.49 Acquired absence of other specified parts of digestive tract; Z98.890 Other specified postprocedural states; F17.200 Nicotine dependence, unspecified, uncomplicated

== ENCOUNTER 2023-01-02 17:07 | Emergency (ER) | payer OTHER ==
[~2023-01-02] VITALS: Ht 172.7 cm; Wt 108.9 kg
[~2023-01-02 17:07] MED LIST changes: +SEPTDS PO
[2023-01-02 19:28] LABS: BASO % 0.3 % (0.0-1.0); EOS # 0.1 10*3/uL (0.0-0.4); EOS % 0.7 % (1.0-4.0); HEMATOCRIT 38.5 % (37.0-47.0); LYMPH # 1.6 10*3/uL (1.3-4.4); LYMPH % 13.2 % (27.0-41.0); MEAN CELL VOLUME 95.1 fl (81.0-99.0); MEAN CORPUSCULAR HGB 31.9 pg (27.0-31.0); MEAN CORPUSCULAR HGB CONC 33.5 g/dl (33.0-37.0); MEAN PLATELET VOLUME 9.4 fl (9.6-12.3); MONO # 0.7 10*3/uL (0.1-1.0); MONO % 5.7 % (3.0-9.0); NEUT # 9.9 10*3/uL (2.3-7.9); NEUT % 79.7 % (47.0-73.0); PLATELET COUNT AUTOMATED 255 10*3/uL (130-400); RED BLOOD COUNT 4.05 10*6/uL (4.10-5.10); RED CELL DISTRI WIDTH 12.8 % (0-14.5); WHITE BLOOD COUNT 12.4 10*3/uL (4.8-10.8)
[2023-01-02 19:49] LABS: ALKALINE PHOSPHATASE 60 U/L (46-116); BUN 10 mg/dl (9-23); CHLORIDE 106 mmol/L (98-107); SGPT/ALT 13 U/L (5-49); TOTAL PROTEIN 6.8 gm/dL (6.0-8.0)
[2023-01-02 20:29] VITALS: BP 154/84
== END 2023-01-02 22:04 | disposition short-term general hospital (02) ==
LOC: ED 17:07
PROVIDERS: Nurse Practitioner Family
DX: N90.7 Vulvar cyst (principal); G43.909 Migraine, unspecified, not intractable, without status migrainosus; F41.9 Anxiety disorder, unspecified; I10 Essential (primary) hypertension; Z88.8 Allergy status to other drugs, medicaments and biological substances; Z90.49 Acquired absence of other specified parts of digestive tract; Z98.890 Other specified postprocedural states; F17.200 Nicotine dependence, unspecified, uncomplicated

== ENCOUNTER → 2023-03-12 | Outpatient (CLI) | payer OTHER ==
[2023-03-12 16:13] LABS: BASO % 0.7 % (0.0-1.0); EOS # 0.1 10*3/uL (0.0-0.4); EOS % 2.3 % (1.0-4.0); HEMATOCRIT 42.3 % (37.0-47.0); LYMPH # 2.3 10*3/uL (1.3-4.4); LYMPH % 40.8 % (27.0-41.0); MEAN CELL VOLUME 93.4 fl (81.0-99.0); MEAN CORPUSCULAR HGB 30.5 pg (27.0-31.0); MEAN CORPUSCULAR HGB CONC 32.6 g/dl (33.0-37.0); MEAN PLATELET VOLUME 8.9 fl (9.6-12.3); MONO # 0.4 10*3/uL (0.1-1.0); MONO % 6.5 % (3.0-9.0); NEUT # 2.8 10*3/uL (2.3-7.9); NEUT % 49.5 % (47.0-73.0); PLATELET COUNT AUTOMATED 262 10*3/uL (130-400); RED BLOOD COUNT 4.53 10*6/uL (4.10-5.10); RED CELL DISTRI WIDTH 13.5 % (0-14.5); WHITE BLOOD COUNT 5.7 10*3/uL (4.8-10.8)
[2023-03-12 16:47] LABS: ALKALINE PHOSPHATASE 56 U/L (46-116); BUN 10 mg/dl (9-23); CHLORIDE 106 mmol/L (98-107); POTASSIUM 3.7 mmol/L (3.4-5.1); SGPT/ALT 16 U/L (5-49); TOTAL PROTEIN 6.8 gm/dL (6.0-8.0)
[2023-03-13 13:07] LABS: CCP ANTIBODIES IGG/IGA 6 units (0-19)
== END | disposition home or self-care (01) ==
LOC: LAB 15:43
PROVIDERS: ATTEND Student in an Organized Health Care Education/Training Program
DX: E89.0 Postprocedural hypothyroidism (principal); M19.90 Unspecified osteoarthritis, unspecified site

== ENCOUNTER 2023-05-13 11:50 | Emergency (ER) | payer OTHER ==
[~2023-05-13] VITALS: Ht 172.7 cm; Wt 113.4 kg
[2023-05-13] MEDS ORDERED: PREDNISONE20 M1 PO (13:21)
[2023-05-13] MEDS ORDERED: AVPAK AZITHROM250 M1 PO (13:21)
[2023-05-13 13:30] VITALS: BP 118/63
== END 2023-05-13 13:29 | disposition home or self-care (01) ==
LOC: ED 11:50
DX: J04.0 Acute laryngitis (principal); G43.909 Migraine, unspecified, not intractable, without status migrainosus; F41.9 Anxiety disorder, unspecified; I10 Essential (primary) hypertension; Z88.8 Allergy status to other drugs, medicaments and biological substances; Z90.49 Acquired absence of other specified parts of digestive tract; Z98.890 Other specified postprocedural states; F17.200 Nicotine dependence, unspecified, uncomplicated

== ENCOUNTER → 2023-06-16 | Outpatient (CLI) | payer OTHER ==
[~2023-06-16] MED LIST changes: +AVPAK AZITHROM250 M1 PO; +PREDNISONE20 M1 PO
[2023-06-16 15:11] LABS: FREE T4 1.39 ng/dl (0.89-1.76)
== END ==
LOC: LAB 14:26
PROVIDERS: ATTEND Family Medicine
DX: E89.0 Postprocedural hypothyroidism (principal)

== ENCOUNTER 2023-11-17 16:24 | Emergency (ER) | payer OTHER ==
[2023-11-18] MEDS ORDERED: SEPTDS PO (10:38)
== END 2023-11-17 16:52 | disposition left against medical advice (07) ==
LOC: ED 16:24
DX: R10.2 Pelvic and perineal pain (principal); Z88.8 Allergy status to other drugs, medicaments and biological substances; Z53.21 Procedure and treatment not carried out due to patient leaving prior to being seen by health care provider

== ENCOUNTER 2023-11-18 08:06 | Emergency (ER) | payer OTHER ==
[~2023-11-18] VITALS: Ht 172.7 cm; Wt 108.9 kg
[2023-11-18 08:31] VITALS: BP 146/82
[2023-11-18] MEDS ORDERED: IOHEXOL 300 MG/ML 100 ML VIAL IV ONE (08:55)
[2023-11-18 09:00] LABS: BILIRUBIN Negative (Negative); BLOOD Negative (Negative); CLARITY Clear (Clear); COLOR Yellow (Yellow); GLUCOSE Negative (Negative); KETONE Negative (Negative); LEUKO ESTERASE Negative (Negative); NITRITE Negative (Negative); SPECIFIC GRAVITY 1.015 (1.001-1.030); UROBILINOGEN 0.2 E.U./dl (0.0-1.0)
[2023-11-18 09:02] LABS: BASO % 0.7 % (0.0-1.0); EOS # 0.1 10*3/uL (0.0-0.4); EOS % 1.3 % (1.0-4.0); HEMATOCRIT 41.7 % (37.0-47.0); LYMPH # 1.7 10*3/uL (1.3-4.4); LYMPH % 26.9 % (27.0-41.0); MEAN CELL VOLUME 94.8 fl (81.0-99.0); MEAN CORPUSCULAR HGB 31.4 pg (27.0-31.0); MEAN CORPUSCULAR HGB CONC 33.1 g/dl (33.0-37.0); MEAN PLATELET VOLUME 9.2 fl (9.6-12.3); MONO # 0.3 10*3/uL (0.1-1.0); MONO % 5.2 % (3.0-9.0); NEUT % 65.6 % (47.0-73.0); PLATELET COUNT AUTOMATED 306 10*3/uL (130-400); RED CELL DISTRI WIDTH 12.8 % (0-14.5); WHITE BLOOD COUNT 6.1 10*3/uL (4.8-10.8)
[2023-11-18 09:13] LABS: RBC 0-2 rbc/hpf (0-2); WBC 0-2 wbc/hpf (0-5)
[2023-11-18 09:18] LABS: ALKALINE PHOSPHATASE 52 U/L (46-116); BUN 12 mg/dl (9-23); CHLORIDE 104 mmol/L (98-107); LIPASE 28 U/L (12-53); POTASSIUM 3.5 mmol/L (3.4-5.1); SGPT/ALT 14 U/L (5-49); TOTAL PROTEIN 6.8 gm/dL (6.0-8.0)
[2023-11-18] MEDS ORDERED: SEPTDS PO (10:38)
== END 2023-11-18 10:50 | disposition home or self-care (01) ==
LOC: ED 08:06
PROVIDERS: Internal Medicine
DX: N76.4 Abscess of vulva (principal); R11.2 Nausea with vomiting, unspecified; F17.200 Nicotine dependence, unspecified, uncomplicated; Z88.8 Allergy status to other drugs, medicaments and biological substances; Z79.899 Other long term (current) drug therapy; Z79.82 Long term (current) use of aspirin; Z90.49 Acquired absence of other specified parts of digestive tract; Z90.721 Acquired absence of ovaries, unilateral

== ENCOUNTER → 2024-01-01 | Outpatient (CLI) | payer OTHER ==
[2024-01-01 09:11] LABS: HEMATOCRIT 42.7 % (37.0-47.0); MEAN CELL VOLUME 92.6 fl (81.0-99.0); MEAN CORPUSCULAR HGB 31.2 pg (27.0-31.0); MEAN CORPUSCULAR HGB CONC 33.7 g/dl (33.0-37.0); MEAN PLATELET VOLUME 9.3 fl (9.6-12.3); RED BLOOD COUNT 4.61 10*6/uL (4.10-5.10); RED CELL DISTRI WIDTH 12.7 % (0-14.5); WHITE BLOOD COUNT 4.3 10*3/uL (4.8-10.8)
[2024-01-01 10:05] LABS: ALKALINE PHOSPHATASE 56 U/L (46-116); BUN 13 mg/dl (9-23); CHLORIDE 107 mmol/L (98-107); CHOLESTEROL 180 mg/dL (<200); CPK 59 U/L (34-171); FREE T4 1.69 ng/dl (0.89-1.76); LDL CHOLESTEROL 120 mg/dL (9-159); SGPT/ALT 13 U/L (5-49); TOTAL PROTEIN 7.1 gm/dL (6.0-8.0); TRIGLYCERIDES 69 mg/dl (<150)
[2024-01-01 10:47] LABS: VITAMIN D, 25-HYDROXY 39.5 ng/mL (30-100)
== END | disposition home or self-care (01) ==
LOC: LAB 08:31
PROVIDERS: ATTEND Family Medicine
DX: C73 Malignant neoplasm of thyroid gland (principal); K21.9 Gastro-esophageal reflux disease without esophagitis; E03.9 Hypothyroidism, unspecified; I10 Essential (primary) hypertension; Z87.891 Personal history of nicotine dependence

== ENCOUNTER 2024-01-07 19:44 | Emergency (ER) | payer OTHER ==
[~2024-01-07] VITALS: Ht 172.7 cm; Wt 108.9 kg
[2024-01-07 19:55] VITALS: BP 133/73
[2024-01-07] MEDS ORDERED: Acetaminophen/Hydrocodone 5 MG/325 MG TABLET PO ONE (20:00)
[2024-01-07] MEDS ORDERED: CLINDAMYCIN HCL 300 MG CAPSULE PO ONE (20:00)
[2024-01-07] MEDS ORDERED: Ondansetron Hydrochloride 4 MG TAB SL ONE (20:00)
[2024-01-07] MEDS ORDERED: CLINDAMYCIN HC300 MG PO (20:04)
== END 2024-01-07 20:13 | disposition home or self-care (01) ==
LOC: ED 19:44
DX: K02.9 Dental caries, unspecified (principal); G43.909 Migraine, unspecified, not intractable, without status migrainosus; F41.9 Anxiety disorder, unspecified; I10 Essential (primary) hypertension; F17.200 Nicotine dependence, unspecified, uncomplicated; Z88.8 Allergy status to other drugs, medicaments and biological substances; Z90.49 Acquired absence of other specified parts of digestive tract; Z98.890 Other specified postprocedural states

== ENCOUNTER → 2024-01-18 | Day surgery (SDC) | payer OTHER ==
[~2024-01-18] VITALS: Ht 172.7 cm; Wt 108.9 kg
[~2024-01-18] MED LIST changes: +CLINDAMYCIN HC300 MG PO; +Lactated Ringer's Solution 0 ML IV ONE; +ROCALTROL0.5 MC1 PO
[2024-01-18 08:30] VITALS: BP 137/73
== END | disposition home or self-care (01) ==
LOC: SDC 12-31 08:00
PROVIDERS: ATTEND Obstetrics & Gynecology
DX: N75.0 Cyst of Bartholin's gland (principal); Z53.8 Procedure and treatment not carried out for other reasons; I10 Essential (primary) hypertension; G43.909 Migraine, unspecified, not intractable, without status migrainosus; J45.909 Unspecified asthma, uncomplicated; E03.9 Hypothyroidism, unspecified; F41.9 Anxiety disorder, unspecified; Z90.49 Acquired absence of other specified parts of digestive tract; Z90.89 Acquired absence of other organs; Z85.43 Personal history of malignant neoplasm of ovary; Z98.890 Other specified postprocedural states; Z79.899 Other long term (current) drug therapy

== ENCOUNTER 2024-02-03 19:57 | Emergency (ER) | payer OTHER ==
[~2024-02-03] VITALS: Ht 172.7 cm; Wt 108.9 kg
[~2024-02-03 19:57] MED LIST changes: -Lactated Ringer's Solution 0 ML IV ONE
[2024-02-03 20:03] VITALS: BP 123/88
[2024-02-03] MEDS ORDERED: PENICILLIN VK500 MG PO (20:27)
[2024-02-03] MEDS ORDERED: NAPROSYN500 MG PO (20:27)
[2024-02-03] MEDS ORDERED: PENICILLIN V POTASSIUM 500 MG TAB PO ONE (20:30)
[2024-02-03] MEDS ORDERED: Acetaminophen/Oxycodone 5 MG/325 MG TABLET PO ONE (20:30)
== END 2024-02-03 20:53 | disposition home or self-care (01) ==
LOC: ED 19:57
DX: K04.7 Periapical abscess without sinus (principal); F41.9 Anxiety disorder, unspecified; F32.A Depression, unspecified; I10 Essential (primary) hypertension; F17.200 Nicotine dependence, unspecified, uncomplicated; Z88.8 Allergy status to other drugs, medicaments and biological substances; Z79.899 Other long term (current) drug therapy; Z79.82 Long term (current) use of aspirin; Z86.73 Personal history of transient ischemic attack (TIA), and cerebral infarction without residual deficits; Z90.89 Acquired absence of other organs; Z90.49 Acquired absence of other specified parts of digestive tract; Z90.721 Acquired absence of ovaries, unilateral

== ENCOUNTER 2024-02-20 17:55 | Emergency (ER) | payer BC ==
[~2024-02-20] VITALS: Ht 172.7 cm; Wt 108.9 kg
[2024-02-20 18:30] VITALS: BP 162/79
[2024-02-20] MEDS ORDERED: Acetaminophen/Oxycodone 5 MG/325 MG TABLET PO ONE (18:40)
[2024-02-20] MEDS ORDERED: Amoxicillin/Clavulanate Pota 875 MG TAB PO ONE (18:40)
[2024-02-20] MEDS ORDERED: AMOX-CLAV 875-1 EACH PO (18:42)
== END 2024-02-20 18:54 | disposition home or self-care (01) ==
LOC: ED 17:55
DX: K04.7 Periapical abscess without sinus (principal); G43.909 Migraine, unspecified, not intractable, without status migrainosus; F41.9 Anxiety disorder, unspecified; I10 Essential (primary) hypertension; F17.200 Nicotine dependence, unspecified, uncomplicated; Z88.8 Allergy status to other drugs, medicaments and biological substances; Z90.49 Acquired absence of other specified parts of digestive tract; Z98.890 Other specified postprocedural states

== ENCOUNTER 2024-07-17 07:20 | Emergency (ER) | payer BC ==
[~2024-07-17] VITALS: Ht 172.7 cm; Wt 108.9 kg
[~2024-07-17 07:20] MED LIST changes: +AMOX-CLAV 875-1 EACH PO
[2024-07-17 07:27] VITALS: BP 151/78
[2024-07-17] MEDS ORDERED: VIBRAMYCIN100 MG PO (07:47)
== END 2024-07-17 18:17 | disposition home or self-care (01) ==
LOC: ED 07:20
DX: S40.862A Insect bite (nonvenomous) of left upper arm, initial encounter (principal); A69.20 Lyme disease, unspecified; Z88.8 Allergy status to other drugs, medicaments and biological substances; Z79.899 Other long term (current) drug therapy; Z79.82 Long term (current) use of aspirin; Z90.49 Acquired absence of other specified parts of digestive tract; Z90.721 Acquired absence of ovaries, unilateral; W57.XXXA Bitten or stung by nonvenomous insect and other nonvenomous arthropods, initial encounter; Y93.89 Activity, other specified; Y92.89 Other specified places as the place of occurrence of the external cause; Y99.8 Other external cause status

== ENCOUNTER → 2024-10-07 | Outpatient (CLI) | payer BC ==
[~2024-10-07] MED LIST changes: +VIBRAMYCIN100 MG PO
[2024-10-08 08:08] LABS: MEASLES (RUBEOLA) Abs, IgG 249.0 AU/mL (Immune >16.4); MUMPS ANTIBODIES, IGG 246.0 AU/mL (Immune >10.9); VARICELLA ZOSTER (VZV) IgG Reactive (Non Reactive)
== END | disposition home or self-care (01) ==
LOC: LAB 12:23
PROVIDERS: ATTEND Nurse Practitioner Family
DX: Z11.1 Encounter for screening for respiratory tuberculosis (principal); Z23 Encounter for immunization

== ENCOUNTER → 2024-12-06 | Outpatient (CLI) | payer BC ==
[~2024-12-06] MED LIST changes: +IOHEXOL 300 MG/ML 100 ML VIAL IV ONE; +MANNITOL IV ONE; +STERILE IV ONE; +WATER IV ONE
== END | disposition home or self-care (01) ==
LOC: CT 11-04 11:00
PROVIDERS: ATTEND Nurse Practitioner
DX: R19.4 Change in bowel habit (principal)